=== PATIENT | male | born 1985 ===

== ENCOUNTER 2024-03-27 11:45 | Inpatient (IN) | payer OTHER ==
[~2024-03-27] VITALS: Ht 165.1 cm; Wt 93.0 kg
[2024-04-03] MEDS ORDERED: BUPIVACAINE HCL/MPF 0.5% 30ML VIAL ONE (09:21)
[2024-04-03] MEDS ORDERED: LIDOCAINE HCL 1%/EPINEPHRINE 20ML VIAL IJ ONE (09:21)
[2024-04-03] MEDS ORDERED: CEFTRIAXONE SODIUM 2,000 MG VIAL ONE (09:22)
[2024-04-03] MEDS ORDERED: METRONIDAZOLE/SODIUM CHLORIDE 500 MG/100 ML PIGGYBACK IV ONE (09:22)
[2024-04-03] MEDS ORDERED: ONDANSETRON HCL 2 MG/ML VIAL IV PRN (12:30)
[2024-04-03] MEDS ORDERED: DEXTROSE 50 % IN WATER 0.5 G/ML DISP.SYRIN IV PRN (12:30)
[2024-04-03] MEDS ORDERED: 0.9 % SODIUM CHLORIDE 1,000 ML IV SCH (12:30)
[2024-04-03] MEDS ORDERED: OxyCODONE HCL 5 MG TABLET (ROXICODONE) PO PRN (12:30)
[2024-04-03] MEDS ORDERED: MORPHINE SULFATE 4 MG/ML CARTRIDGE IV PRN (12:30)
[2024-04-03] MEDS ORDERED: HYOSCYAMINE SULFATE 0.125 MG TAB.SUBL SL SCH (13:00)
[2024-04-03] MEDS ORDERED: MORPHINE SULFATE 4 MG/ML VIAL IV ONE (13:20)
[2024-04-03 13:48] LABS: HEMATOCRIT 32.7 % (39.0-48.0); HEMOGLOBIN 10.9 g/dL (13-16.00); MEAN CORPUSCULAR HGB CONC 33.4 g/dl (32.0-36.0); PLATELET COUNT 482 K/uL (150-450); RED BLOOD COUNT 4.04 M/uL (4.00-6.00); RED CELL DISTRIBUTION WIDTH 14.3 % (11.5-14.5)
[2024-04-03] MEDS ORDERED: ACETAMINOPHEN 500 MG GEL..CAP PO SCH (14:00)
[2024-04-03 15:05] LABS: ALBUMIN 2.8 gm/dL (3.4-5.0); CALCIUM 8.5 mg/dL (8.5-10.1); CREATININE SERUM 1.14 mg/dL (0.70-1.30); GFR 71.89; MAGNESIUM 1.8 mg/dL (1.8-2.4); PHOSPHOROUS 4.8 mg/dL (2.5-4.9); POTASSIUM 5.05 mEq/L (3.5-5.1)
[2024-04-03 16:00] VITALS: BP 131/65; O2SAT 95
[2024-04-03] MEDS ORDERED: GABAPENTIN 300 MG CAPSULE PO SCH (17:00)
[2024-04-03] MEDS ORDERED: POLYETHYLENE GLYCOL 3350 17 GM BLIST.PACK PO SCH (17:00)
[2024-04-03 18:00] VITALS: BP 101/55; O2SAT 95
[2024-04-03] MEDS ORDERED: FAMOTIDINE/PF 20 MG/2 ML VIAL IV PUSH SCH (21:00)
[2024-04-03] MEDS ORDERED: CELECOXIB 200 MG CAPSULE PO SCH (21:00)
[2024-04-04] VITALS: BP 130/61; O2SAT 98
[2024-04-04 06:55] LABS: HEMOGLOBIN 11.5 g/dL (13-16.00); MEAN CORPUSCULAR HGB CONC 32.9 g/dl (32.0-36.0); PLATELET COUNT 459 K/uL (150-450); RED BLOOD COUNT 4.27 M/uL (4.00-6.00); RED CELL DISTRIBUTION WIDTH 14.4 % (11.5-14.5)
[2024-04-04 07:16] LABS: ALBUMIN 2.6 gm/dL (3.4-5.0); CALCIUM 8.4 mg/dL (8.5-10.1); CREATININE SERUM 1.07 mg/dL (0.70-1.30); GFR 77.34; MAGNESIUM 1.9 mg/dL (1.8-2.4); PHOSPHOROUS 4.4 mg/dL (2.5-4.9); POTASSIUM 4.6 mEq/L (3.5-5.1)
[2024-04-04 08:00] VITALS: BP 122/83; O2SAT 95
[2024-04-04] MEDS ORDERED: MORPHINE SULFATE 4 MG/ML CARTRIDGE IV STA (08:17)
[2024-04-04] MEDS ORDERED: PIPERACILLIN/TAZOBACTAM SODIUM 3.375 GM in 0.9 % SODIUM CHLORIDE 100 ML IV SCH (12:00)
[2024-04-04 16:00] VITALS: BP 107/70; O2SAT 96
[2024-04-04] MEDS ORDERED: ENOXAPARIN SODIUM 40 MG/0.4 ML SYRINGE SUBCUTANEO SCH (17:00)
[2024-04-05 00:52] VITALS: BP 104/68; O2SAT 96
[2024-04-05 08:00] VITALS: BP 107/70; O2SAT 95
[2024-04-05] MEDS ORDERED: ENOXAPARIN SODIUM 40 MG/0.4 ML SYRINGE SUBCUTANEO SCH (09:00)
[2024-04-05 11:40] LABS: HEMATOCRIT 26.9 % (39.0-48.0); MEAN CELL VOLUME 80.6 fL (80.0-100.00); MEAN CORPUSCULAR HGB CONC 32.8 g/dl (32.0-36.0); PLATELET COUNT 408 K/uL (150-450); RED BLOOD COUNT 3.34 M/uL (4.00-6.00); RED CELL DISTRIBUTION WIDTH 14.8 % (11.5-14.5)
[2024-04-05 11:41] LABS: HEMOGLOBIN 8.8 g/dL (13-16.00); MEAN CORPUSCULAR HEMOGLOBIN 26.3 pg (27.00-32.0)
[2024-04-05 11:56] LABS: CALCIUM 8.2 mg/dL (8.5-10.1); CREATININE SERUM 0.93 mg/dL (0.70-1.30); GFR 90.93; MAGNESIUM 2.1 mg/dL (1.8-2.4); PHOSPHOROUS 2.4 mg/dL (2.5-4.9); POTASSIUM 4.21 mEq/L (3.5-5.1)
[2024-04-05 12:01] LABS: C-REACTIVE PROTEIN 29.8 MG/DL (0.00-0.29); TSH 0.162 uIU/mL (0.358-3.74)
[2024-04-05 17:25] VITALS: BP 116/61; O2SAT 97
[2024-04-06] VITALS: BP 103/64; O2SAT 99
[2024-04-06 08:00] VITALS: BP 125/79; O2SAT 98
[2024-04-06] MEDS ORDERED: PIPERACILLIN/TAZOBACTAM SODIUM 3.375 GM VIAL IV ONE (13:02)
[2024-04-06 16:00] VITALS: BP 115/68; O2SAT 98
[2024-04-06] MEDS ORDERED: Cyanocobalamin/Mecobalamin 1 TAB.SL SL SCH (17:00)
[2024-04-06] MEDS ORDERED: SOD FERRIC GLUC COMPLX/SUCROSE 62.5 MG in 0.9 % SODIUM CHLORIDE 50 ML IV SCH (17:00)
[2024-04-06] MEDS ORDERED: LINEZOLID IN DEXTROSE 5% 300 ML IV SCH (17:00)
[2024-04-06] MEDS ORDERED: MEROPENEM 500 MG in 0.9 % SODIUM CHLORIDE 50 ML IV SCH (18:00)
[2024-04-07] VITALS: BP 117/55; O2SAT 94
[2024-04-07 07:45] VITALS: BP 106/67; O2SAT 97
[2024-04-07 16:00] VITALS: BP 104/62; O2SAT 98
[2024-04-07] MEDS ORDERED: FAMOtidine 20 MG TABLET PO SCH (21:00)
[2024-04-07 22:07] LABS: HEMATOCRIT 27.1 % (39.0-48.0); HEMOGLOBIN 8.9 g/dL (13-16.00); RED BLOOD COUNT 3.34 M/uL (4.00-6.00)
[2024-04-08 00:53] VITALS: BP 106/57; O2SAT 100
[2024-04-08 08:00] VITALS: BP 126/74; O2SAT 95
[2024-04-08 08:24] LABS: MEAN CELL VOLUME 80.1 fL (80.0-100.00); MEAN CORPUSCULAR HGB CONC 33.4 g/dl (32.0-36.0); RED BLOOD COUNT 2.78 M/uL (4.00-6.00); RED CELL DISTRIBUTION WIDTH 14.8 % (11.5-14.5)
[2024-04-08 08:48] LABS: HEMATOCRIT 22.3 % (39.0-48.0); MEAN CORPUSCULAR HEMOGLOBIN 26.9 pg (27.00-32.0); PLATELET COUNT 536 K/uL (150-450)
[2024-04-08 08:59] LABS: ALBUMIN 1.9 gm/dL (3.4-5.0); CALCIUM 8.5 mg/dL (8.5-10.1); CREATININE SERUM 0.69 mg/dL (0.70-1.30); GFR 128.32; MAGNESIUM 1.9 mg/dL (1.8-2.4); POTASSIUM 4.08 mEq/L (3.5-5.1)
[2024-04-08 09:04] LABS: C-REACTIVE PROTEIN 17.3 MG/DL (0.00-0.29)
[2024-04-08] MEDS ORDERED: FUROsemide 20 MG/2 ML VIAL IV SCH (09:15)
[2024-04-08 10:35] LABS: HEMOGLOBIN 7.5 g/dL (13-16.00)
[2024-04-08 16:50] VITALS: BP 119/64; O2SAT 98
[2024-04-08] MEDS ORDERED: AMINO ACIDS 1 EACH TABLET PO SCH (17:00)
[2024-04-09 02:35] VITALS: BP 110/71; O2SAT 100
[2024-04-09 08:00] VITALS: BP 118/69; O2SAT 99
[2024-04-09 16:00] VITALS: BP 131/79; O2SAT 99
[2024-04-09 20:20] LABS: HEMOGLOBIN 10.7 g/dL (13-16.00); MEAN CELL VOLUME 79.5 fL (80.0-100.00); MEAN CORPUSCULAR HEMOGLOBIN 26.6 pg (27.00-32.0); MEAN CORPUSCULAR HGB CONC 33.5 g/dl (32.0-36.0); PLATELET COUNT 667 K/uL (150-450); RED BLOOD COUNT 4.02 M/uL (4.00-6.00)
[2024-04-10] VITALS: BP 113/75; O2SAT 95
[2024-04-10 07:47] LABS: HEMOGLOBIN 9.1 g/dL (13-16.00); MEAN CELL VOLUME 79.6 fL (80.0-100.00); MEAN CORPUSCULAR HEMOGLOBIN 26.9 pg (27.00-32.0); MEAN CORPUSCULAR HGB CONC 33.8 g/dl (32.0-36.0); PLATELET COUNT 636 K/uL (150-450); RED BLOOD COUNT 3.39 M/uL (4.00-6.00); RED CELL DISTRIBUTION WIDTH 14.8 % (11.5-14.5)
[2024-04-10 08:44] LABS: CALCIUM 8.5 mg/dL (8.5-10.1); CREATININE SERUM 0.72 mg/dL (0.70-1.30); GFR 122.17; MAGNESIUM 1.7 mg/dL (1.8-2.4); PHOSPHOROUS 3.6 mg/dL (2.5-4.9); POTASSIUM 4.35 mEq/L (3.5-5.1)
[2024-04-10 09:40] VITALS: BP 105/68; O2SAT 97
[2024-04-10] MEDS ORDERED: DIATRIZOATE MEGLUMINE, SODIUM 30 ML BOTTLE PO NR (11:00)
[2024-04-10] MEDS ORDERED: MAGNESIUM SULFATE IN WATER 50 ML IV NR (11:00)
[2024-04-10] MEDS ORDERED: DIPHENHYDRAMINE HCL 50 MG/ML VIAL 1ML ONE (13:38)
[2024-04-10] MEDS ORDERED: METHYLPREDNISOLONE SOD SUCC 40 MG VIAL ONE (13:39)
[2024-04-10] MEDS ORDERED: DIPHENHYDRAMINE HCL 50 MG/ML VIAL 1ML IV ONE (14:00)
[2024-04-10] MEDS ORDERED: METHYLPREDNISOLONE SOD SUCC 40 MG VIAL IV ONE (14:00)
[2024-04-10 16:00] VITALS: BP 131/79; O2SAT 95
[2024-04-11] VITALS: BP 115/75; O2SAT 96
[2024-04-11 04:14] VITALS: BP 115/74; O2SAT 96
[2024-04-11 08:00] VITALS: BP 124/72; O2SAT 99
[2024-04-11 08:39] LABS: HEMATOCRIT 29.9 % (39.0-48.0); HEMOGLOBIN 10.1 g/dL (13-16.00); MEAN CELL VOLUME 79.4 fL (80.0-100.00); MEAN CORPUSCULAR HEMOGLOBIN 26.7 pg (27.00-32.0); MEAN CORPUSCULAR HGB CONC 33.6 g/dl (32.0-36.0); PLATELET COUNT 756 K/uL (150-450); RED BLOOD COUNT 3.77 M/uL (4.00-6.00); RED CELL DISTRIBUTION WIDTH 14.9 % (11.5-14.5)
[2024-04-11 09:25] LABS: C-REACTIVE PROTEIN 10.6 MG/DL (0.00-0.29); CALCIUM 8.5 mg/dL (8.5-10.1); CREATININE SERUM 0.69 mg/dL (0.70-1.30); GFR 128.32; MAGNESIUM 2.3 mg/dL (1.8-2.4); PHOSPHOROUS 3.9 mg/dL (2.5-4.9); POTASSIUM 4.89 mEq/L (3.5-5.1)
[2024-04-11] MEDS ORDERED: LINEZOLID IN DEXTROSE 5% 600 MG/300 ML PIGGYBAG IV NR (11:00)
[2024-04-11] MEDS ORDERED: FLUCONAZOLE IN NACL,ISO-OSM 100 ML IV SCH (12:00)
[2024-04-11] MEDS ORDERED: FLUCONAZOLE 200 MG TABLET PO NR (12:20)
[2024-04-11 16:00] VITALS: BP 122/82; O2SAT 100
[2024-04-11] MEDS ORDERED: SOD FERRIC GLUC COMPLX/SUCROSE 62.5 MG in 0.9 % SODIUM CHLORIDE 50 ML IV SCH (18:12)
[2024-04-11] MEDS ORDERED: LINEZOLID IN DEXTROSE 5% 300 ML IV SCH (21:00)
[2024-04-11] MEDS ORDERED: LINEZOLID 600 MG TABLET PO SCH (21:00)
[2024-04-12 01:10] VITALS: BP 118/71; O2SAT 99
[2024-04-12 08:00] VITALS: BP 109/65; O2SAT 98
[2024-04-12] MEDS ORDERED: FLUCONAZOLE 200 MG TABLET PO SCH (12:00)
[2024-04-12 16:00] VITALS: BP 120/79; O2SAT 99
[2024-04-13 02:13] VITALS: BP 118/55; O2SAT 96
[2024-04-13 08:00] VITALS: BP 116/73; O2SAT 96
[2024-04-13 13:32] LABS: HEMATOCRIT 34.2 % (39.0-48.0); HEMOGLOBIN 11.2 g/dL (13-16.00); MEAN CORPUSCULAR HGB CONC 32.9 g/dl (32.0-36.0); PLATELET COUNT 971 K/uL (150-450); RED BLOOD COUNT 4.16 M/uL (4.00-6.00); RED CELL DISTRIBUTION WIDTH 15.2 % (11.5-14.5)
[2024-04-13 19:41] VITALS: BP 119/79; O2SAT 96
[2024-04-14 01:01] VITALS: BP 135/81; O2SAT 100
[2024-04-14 08:00] VITALS: BP 147/90; O2SAT 97
[2024-04-14 16:00] VITALS: BP 131/69
[2024-04-15 00:25] VITALS: BP 139/84; O2SAT 99
[2024-04-15 07:53] LABS: HEMATOCRIT 32.7 % (39.0-48.0); MEAN CELL VOLUME 81.4 fL (80.0-100.00); MEAN CORPUSCULAR HEMOGLOBIN 26.3 pg (27.00-32.0); MEAN CORPUSCULAR HGB CONC 32.3 g/dl (32.0-36.0); RED BLOOD COUNT 4.02 M/uL (4.00-6.00); RED CELL DISTRIBUTION WIDTH 15.4 % (11.5-14.5)
[2024-04-15 08:05] LABS: PLATELET COUNT 1005 K/uL (150-450)
[2024-04-15 08:06] LABS: HEMOGLOBIN 10.6 g/dL (13-16.00)
[2024-04-15 09:30] VITALS: BP 129/79; O2SAT 100
[2024-04-15] MEDS ORDERED: SODIUM CL 0.9% 50 ML IV.SOLN IV ONE (11:38)
[2024-04-15 16:29] VITALS: BP 132/67; O2SAT 100
[2024-04-15 16:31] VITALS: BP 132/67; O2SAT 100
[2024-04-16 03:22] VITALS: BP 113/63
[2024-04-16] MEDS ORDERED: HYOSCYAMINE0.125 M1 SL (08:19)
[2024-04-16] MEDS ORDERED: Neurin-Sl Tablet Sl SL (08:20)
[2024-04-16] MEDS ORDERED: TRAM1TAB98 PO (08:20)
[2024-04-16] MEDS ORDERED: INTEGRA F CAPS1 EACH PO (08:20)
[2024-04-16] MEDS ORDERED: PEPCID AC20 MG PO (08:20)
[2024-04-16 08:52] VITALS: BP 124/76
== END 2024-04-16 12:10 | disposition home or self-care (01) | DRG 329 ==
LOC: O/R 04-03 06:28 → SURH 04-03 09:30
PROVIDERS: Internal Medicine Geriatric Medicine; Internal Medicine Hematology & Oncology; Internal Medicine Infectious Disease; ADMIT Surgery; ATTEND Surgery
PROC: 07BB3ZZ Excision of Mesenteric Lymphatic, Percutaneous Approach (ICD-10-PCS; 2024-04-03)
PROC: 0DBU4ZZ Excision of Omentum, Percutaneous Endoscopic Approach (ICD-10-PCS; 2024-04-03)
PROC: 0DTG4ZZ Resection of Left Large Intestine, Percutaneous Endoscopic Approach (ICD-10-PCS; principal; 2024-04-03 09:30)
PROC: 30233N1 Transfusion of Nonautologous Red Blood Cells into Peripheral Vein, Percutaneous Approach (ICD-10-PCS; 2024-04-08)
DX: C18.9 Malignant neoplasm of colon, unspecified (principal); A41.9 Sepsis, unspecified organism; K56.50 Intestinal adhesions [bands], unspecified as to partial versus complete obstruction; D37.4 Neoplasm of uncertain behavior of colon; R59.0 Localized enlarged lymph nodes; D72.828 Other elevated white blood cell count; D64.89 Other specified anemias; D75.838 Other thrombocytosis; E86.0 Dehydration; R10.814 Left lower quadrant abdominal tenderness; R10.812 Left upper quadrant abdominal tenderness; R00.0 Tachycardia, unspecified; E88.09 Other disorders of plasma-protein metabolism, not elsewhere classified; E83.42 Hypomagnesemia